=== PATIENT | female | born 1945 | race African-American/Black ===

== ENCOUNTER 2019-04-14 12:02 | Inpatient (IN) | payer MEDICARE, MEDICAID, OTHER ==
[~2019-04-14] VITALS: Ht 167.6 cm; Wt 71.9 kg
[2019-04-14] MEDS ORDERED: NITROGLYCERIN OINT 1GM/INCH UDPKT TD ONE (12:45)
[2019-04-14] MEDS ORDERED: ASPIRIN 81MG TABLET PO ONE (12:45)
[2019-04-14] MEDS ORDERED: FUROSEMIDE 40MG/4ML VIAL IV ONE (12:45)
[2019-04-14 14:19] LABS: BASOPHILS % 1.2 % (0.0-2.0); EOSINOPHILS % 3.9 % (0.0-5.0); HEMATOCRIT. 39.1 % (36.0-48.0); HEMOGLOBIN. 12.4 g/dL (12.0-16.0); LYMPHOCYTES % 22.9 % (20.0-50.0); MEAN CORPUSCULAR HEMOGLOBIN 23.1 pg (28.0-32.0); MEAN CORPUSCULAR VOLUME 72.8 fL (81.0-99.0); MEAN PLATELET VOLUME 8.9 fl (7.4-10.4); MONOCYTES % 13.9 % (2.0-8.0); NEUTROPHILS % 58.1 % (40.0-76.0); PLATELET 207 x1000/uL (130-400); RED BLOOD CELL COUNT 5.36 mill/uL (4.2-5.4); RED CELL DISTRIBUTION WIDTH 17.2 % (11.6-14.6)
[2019-04-14 14:23] LABS: CHLORIDE 108 mEq/L (98-107)
[2019-04-14 14:26] LABS: INR 1.1; PARTIAL THROMBOPLASTIN TIME 28.6 sec (23.4-31.0); PROTHROMBIN TIME 11.6 sec (9.6-11.0)
[2019-04-14] MEDS ORDERED: ONDANSETRON HCL 4MG/2ML INJ IV PRN (19:30)
[2019-04-14] MEDS ORDERED: MAGNESIUM HYDROXIDE 400MG/5ML 30ML UDC PO PRN (19:30)
[2019-04-14] MEDS ORDERED: CLONIDINE 0.1MG TABLET PO PRN (19:30)
[2019-04-14] MEDS ORDERED: IPRATROPIUM/ALBUTEROL 0.5-3(2.5)MG/3ML NEB INH PRN (19:30)
[2019-04-14] MEDS ORDERED: DIPHENHYDRAMINE 50MG/ML VIAL IV PRN (19:30)
[2019-04-14] MEDS ORDERED: IOHEXOL-350 100 ML BOTTLE ONE (19:51)
[2019-04-14 21:30] VITALS: BP 159/64
[2019-04-14] MEDS ORDERED: TEMAZEPAM 15MG CAPSULE PO PRN (22:00)
[2019-04-14] MEDS: CARBAMAZEPINE 100MG TABLET CHEW PO SCH (22:47)
[2019-04-14] MEDS: ATORVASTATIN CALCIUM 40MG TABLET PO SCH (22:47)
[2019-04-14] MEDS: FUROSEMIDE 40MG/4ML VIAL IVP SCH (22:47)
[2019-04-14] MEDS: PANTOPRAZOLE 40MG DR TABLET PO SCH (22:47)
[2019-04-14] MEDS: ENOXAPARIN 40MG/0.4ML SYR SUBCUT SCH (22:48)
[2019-04-14] MEDS: SODIUM CHLORIDE 0.9% INJ 3ML FLUSH IVF SCH (22:48)
[2019-04-14] MEDS ORDERED: TRAV2.5D OP (23:58)
[2019-04-14] MEDS ORDERED: CARB100T4 PO (23:58)
[2019-04-14] MEDS ORDERED: ATOR40TA70 PO (23:58)
[2019-04-14] MEDS ORDERED: NITR0.4T49 SL (23:58)
[2019-04-14] MEDS ORDERED: POTA15TA11 PO (23:58)
[2019-04-14] MEDS ORDERED: DICL75TA5 PO (23:58)
[2019-04-14] MEDS ORDERED: FURO40TA5 PO (23:58)
[2019-04-14] MEDS ORDERED: ATEN-42 PO (23:58)
[2019-04-14] MEDS ORDERED: ASPI-1393 PO (23:58)
[2019-04-14] MEDS ORDERED: ESOM40CA53 PO (23:58)
[2019-04-14] MEDS ORDERED: DOXY100T2 PO (23:58)
[2019-04-14] MEDS ORDERED: DICL100G16 TP (23:58)
[2019-04-15] VITALS: BP 130/86
[2019-04-15 04:00] VITALS: BP 138/62
[2019-04-15] MEDS: SODIUM CHLORIDE 0.9% INJ 3ML FLUSH IVF SCH ×3 (06:24→21:21)
[2019-04-15] MEDS: CARBAMAZEPINE 100MG TABLET CHEW PO SCH ×3 (06:24→21:22)
[2019-04-15] MEDS: PANTOPRAZOLE 40MG DR TABLET PO SCH (06:24)
[2019-04-15 07:19] LABS: CHLORIDE 105 mEq/L (98-107)
[2019-04-15 08:00] VITALS: BP 164/71
[2019-04-15] MEDS: ASPIRIN 81MG EC TABLET PO SCH (08:30)
[2019-04-15] MEDS: POTASSIUM CHLORIDE 20MEQ TABLET SR PO SCH (08:30)
[2019-04-15] MEDS: FUROSEMIDE 40MG/4ML VIAL IVP SCH ×2 (08:30→18:03)
[2019-04-15] MEDS ORDERED: ATENOLOL 25MG TABLET PO SCH (09:00)
[2019-04-15 12:00] VITALS: BP 138/76
[2019-04-15 16:00] VITALS: BP 147/62
[2019-04-15] MEDS: LOSARTAN POTASSIUM 25 MG TABLET PO SCH (18:03)
[2019-04-15 20:00] VITALS: BP 130/74
[2019-04-15] MEDS: ENOXAPARIN 40MG/0.4ML SYR SUBCUT SCH (21:21)
[2019-04-15] MEDS: FAMOTIDINE 20MG TABLET PO SCH (21:22)
[2019-04-15] MEDS: ATORVASTATIN CALCIUM 40MG TABLET PO SCH (21:22)
[2019-04-16] VITALS: BP 129/52
[2019-04-16 04:00] VITALS: BP 130/61
[2019-04-16] MEDS: CARBAMAZEPINE 100MG TABLET CHEW PO SCH ×3 (06:16→21:30)
[2019-04-16] MEDS: FUROSEMIDE 40MG/4ML VIAL IVP SCH ×2 (06:16→17:12)
[2019-04-16] MEDS: SODIUM CHLORIDE 0.9% INJ 3ML FLUSH IVF SCH ×3 (06:16→21:31)
[2019-04-16 07:31] LABS: BASOPHILS % 0.8 % (0.0-2.0); EOSINOPHILS % 6.8 % (0.0-5.0); HEMATOCRIT. 38.4 % (36.0-48.0); HEMOGLOBIN. 12.3 g/dL (12.0-16.0); LYMPHOCYTES % 28.6 % (20.0-50.0); MEAN CORPUSCULAR VOLUME 72.1 fL (81.0-99.0); MEAN PLATELET VOLUME 9.1 fl (7.4-10.4); MONOCYTES % 14.1 % (2.0-8.0); NEUTROPHILS % 49.7 % (40.0-76.0); PLATELET 203 x1000/uL (130-400); RED BLOOD CELL COUNT 5.32 mill/uL (4.2-5.4); RED CELL DISTRIBUTION WIDTH 16.9 % (11.6-14.6)
[2019-04-16 08:00] VITALS: BP 137/51
[2019-04-16] MEDS: FAMOTIDINE 20MG TABLET PO SCH ×2 (08:33→21:30)
[2019-04-16] MEDS: ASPIRIN 81MG EC TABLET PO SCH (08:33)
[2019-04-16] MEDS: POTASSIUM CHLORIDE 20MEQ TABLET SR PO SCH (08:33)
[2019-04-16] MEDS: LOSARTAN POTASSIUM 25 MG TABLET PO SCH (08:33)
[2019-04-16 12:00] VITALS: BP 117/66
[2019-04-16 16:00] VITALS: BP 131/59
[2019-04-16] MEDS: ACETAMINOPHEN 325MG TABLET PO PRN (17:21)
[2019-04-16 20:04] VITALS: BP 115/51
[2019-04-16] MEDS: ATORVASTATIN CALCIUM 40MG TABLET PO SCH (21:30)
[2019-04-16] MEDS: ENOXAPARIN 40MG/0.4ML SYR SUBCUT SCH (21:31)
[2019-04-17 00:01] VITALS: BP 140/62
[2019-04-17] MEDS: SODIUM CHLORIDE 0.9% INJ 3ML FLUSH IVF SCH ×3 (06:13→21:05)
[2019-04-17] MEDS: CARBAMAZEPINE 100MG TABLET CHEW PO SCH ×3 (06:13→21:04)
[2019-04-17] MEDS: FUROSEMIDE 40MG/4ML VIAL IVP SCH ×2 (06:16→16:51)
[2019-04-17 08:00] VITALS: BP 124/53
[2019-04-17] MEDS: LOSARTAN POTASSIUM 25 MG TABLET PO SCH (08:50)
[2019-04-17] MEDS: POTASSIUM CHLORIDE 20MEQ TABLET SR PO SCH (08:50)
[2019-04-17] MEDS: ASPIRIN 81MG EC TABLET PO SCH (08:50)
[2019-04-17 09:00] LABS: BASOPHILS % 1.7 % (0.0-2.0); EOSINOPHILS % 8.1 % (0.0-5.0); HEMATOCRIT. 40.6 % (36.0-48.0); HEMOGLOBIN. 12.8 g/dL (12.0-16.0); LYMPHOCYTES % 30.8 % (20.0-50.0); MEAN CORPUSCULAR HEMOGLOBIN 22.9 pg (28.0-32.0); MEAN CORPUSCULAR VOLUME 72.8 fL (81.0-99.0); MEAN PLATELET VOLUME 9.2 fl (7.4-10.4); MONOCYTES % 13.5 % (2.0-8.0); NEUTROPHILS % 45.9 % (40.0-76.0); PLATELET 187 x1000/uL (130-400); RED BLOOD CELL COUNT 5.57 mill/uL (4.2-5.4); RED CELL DISTRIBUTION WIDTH 17.3 % (11.6-14.6)
[2019-04-17 12:00] VITALS: BP 137/67
[2019-04-17 16:00] VITALS: BP 146/75
[2019-04-17 20:29] VITALS: BP 132/62
[2019-04-17] MEDS: ENOXAPARIN 40MG/0.4ML SYR SUBCUT SCH (21:04)
[2019-04-17] MEDS: ATORVASTATIN CALCIUM 40MG TABLET PO SCH (21:04)
[2019-04-17] MEDS: FAMOTIDINE 20MG TABLET PO SCH (21:04)
[2019-04-18 00:11] VITALS: BP 145/63
[2019-04-18 04:27] VITALS: BP 141/62
[2019-04-18] MEDS: FUROSEMIDE 40MG/4ML VIAL IVP SCH (06:24)
[2019-04-18] MEDS: CARBAMAZEPINE 100MG TABLET CHEW PO SCH ×2 (06:24→13:53)
[2019-04-18] MEDS: SODIUM CHLORIDE 0.9% INJ 3ML FLUSH IVF SCH ×2 (06:24→13:53)
[2019-04-18 07:56] LABS: BASOPHILS % 1.4 % (0.0-2.0); EOSINOPHILS % 7.5 % (0.0-5.0); HEMATOCRIT. 42.4 % (36.0-48.0); HEMOGLOBIN. 13.3 g/dL (12.0-16.0); LYMPHOCYTES % 27.3 % (20.0-50.0); MEAN CORPUSCULAR VOLUME 73.3 fL (81.0-99.0); MEAN PLATELET VOLUME 9.6 fl (7.4-10.4); MONOCYTES % 14.7 % (2.0-8.0); NEUTROPHILS % 49.1 % (40.0-76.0); PLATELET 159 x1000/uL (130-400); RED BLOOD CELL COUNT 5.79 mill/uL (4.2-5.4); RED CELL DISTRIBUTION WIDTH 17.2 % (11.6-14.6)
[2019-04-18 07:57] VITALS: BP 137/71
[2019-04-18] MEDS: ASPIRIN 81MG EC TABLET PO SCH (09:23)
[2019-04-18] MEDS: POTASSIUM CHLORIDE 20MEQ TABLET SR PO SCH (09:23)
[2019-04-18] MEDS: LOSARTAN POTASSIUM 25 MG TABLET PO SCH (09:23)
[2019-04-18 11:53] VITALS: BP 160/79
[2019-04-18] MEDS: ACETAMINOPHEN 325MG TABLET PO PRN (12:33)
[2019-04-18 16:22] VITALS: BP 148/75
[2019-04-18 17:03] VITALS: BP 148/75
== END 2019-04-18 18:34 | disposition home or self-care (01) | DRG 291 ==
LOC: ER 14:23 → 6WST 17:43 → ENRESERV 18:26
PROVIDERS: ADMIT Internal Medicine; ATTEND Internal Medicine
DX: I11.0 Hypertensive heart disease with heart failure (principal); J96.90 Respiratory failure, unspecified, unspecified whether with hypoxia or hypercapnia; I50.43 Acute on chronic combined systolic (congestive) and diastolic (congestive) heart failure; K21.9 Gastro-esophageal reflux disease without esophagitis; I25.5 Ischemic cardiomyopathy; R74.0 Nonspecific elevation of levels of transaminase and lactic acid dehydrogenase [LDH]; E78.00 Pure hypercholesterolemia, unspecified; H40.9 Unspecified glaucoma; M19.90 Unspecified osteoarthritis, unspecified site; I25.10 Atherosclerotic heart disease of native coronary artery without angina pectoris; I25.2 Old myocardial infarction; Z79.82 Long term (current) use of aspirin; Z79.899 Other long term (current) drug therapy; Z82.49 Family history of ischemic heart disease and other diseases of the circulatory system; Z90.710 Acquired absence of both cervix and uterus; Z95.1 Presence of aortocoronary bypass graft; Z88.8 Allergy status to other drugs, medicaments and biological substances; Z98.49 Cataract extraction status, unspecified eye
CPT/HCPCS: 36415; 71045; 71275; 80048; 80061; 80076; 83036; 83735; 83880; 84443; 84484; 85379; 93005; 93306; 93970; 96374; 99285; J1650; J1940; Q9967

== ENCOUNTER 2019-05-09 11:07 | Emergency (ER) | payer MEDICARE, OTHER ==
[~2019-05-09] VITALS: Ht 162.6 cm; Wt 60.0 kg
[~2019-05-09 11:07] MED LIST: ASPI-1393 PO; ATEN-42 PO; ATOR40TA70 PO; CARB100T4 PO; DICL100G16 TP; DICL75TA5 PO; DOXY100T2 PO; ESOM40CA53 PO; FURO40TA5 PO; NITR0.4T49 SL; POTA15TA11 PO; TRAV2.5D OP
[2019-05-09 12:15] LABS: BASOPHILS % 1.3 % (0.0-2.0); EOSINOPHILS % 3.1 % (0.0-5.0); HEMATOCRIT. 41.3 % (36.0-48.0); HEMOGLOBIN. 12.9 g/dL (12.0-16.0); LYMPHOCYTES % 26.7 % (20.0-50.0); MEAN CORPUSCULAR HEMOGLOBIN 22.9 pg (28.0-32.0); MEAN CORPUSCULAR VOLUME 73.1 fL (81.0-99.0); MEAN PLATELET VOLUME 9.6 fl (7.4-10.4); MONOCYTES % 13.9 % (2.0-8.0); PLATELET 168 x1000/uL (130-400); RED BLOOD CELL COUNT 5.65 mill/uL (4.2-5.4); RED CELL DISTRIBUTION WIDTH 17.1 % (11.6-14.6)
[2019-05-09 12:23] LABS: CHLORIDE 104 mEq/L (98-107)
[2019-05-09 12:24] LABS: INR 1.1; PROTHROMBIN TIME 11.4 sec (9.6-11.0)
[2019-05-09 16:26] LABS: CLARITY URINE CLEAR (CLEAR); COLOR URINE YELLOW (YELLOW); KETONES URINE NEGATIVE (NEGATIVE); LEUKOCYTE ESTERASE URINE NEGATIVE (NEGATIVE); NITRITE URINE NEGATIVE (NEGATIVE); OCCULT BLOOD URINE NEGATIVE (NEGATIVE); PROTEIN URINE TRACE (NEGATIVE); SPECIFIC GRAVITY URINE 1.021 (1.005-1.030); UROBILINOGEN URINE 0.2 E.U./dL (0.2-1.0)
[2019-05-09 18:03] VITALS: BP 137/77
== END 2019-05-09 18:23 | disposition home or self-care (01) ==
LOC: ER 11:07
DX: I11.0 Hypertensive heart disease with heart failure (principal); I50.9 Heart failure, unspecified; I25.2 Old myocardial infarction; J44.9 Chronic obstructive pulmonary disease, unspecified; I25.10 Atherosclerotic heart disease of native coronary artery without angina pectoris; Z95.1 Presence of aortocoronary bypass graft; Z88.3 Allergy status to other anti-infective agents
CPT/HCPCS: 36415; 71045; 83605; 83880; 84484; 93005; 99284

== ENCOUNTER 2020-01-27 08:40 | Inpatient (IN) | payer MEDICARE, MEDICAID ==
[~2020-01-27] VITALS: Ht 167.6 cm; Wt 56.7 kg
[~2020-01-27 08:40] MED LIST changes: -ASPI-1393 PO; +ASPI-1497 PO
[2020-01-27] MEDS ORDERED: ONDANSETRON HCL 4MG/2ML INJ IV STA ×2 (09:56→10:26)
[2020-01-27 10:13] LABS: BASOPHILS % 0.7 % (0.0-2.0); EOSINOPHILS % 1.4 % (0.0-5.0); HEMATOCRIT. 41.8 % (36.0-48.0); HEMOGLOBIN. 13.3 g/dL (12.0-16.0); LYMPHOCYTES % 20.4 % (20.0-50.0); MEAN CORPUSCULAR HEMOGLOBIN 23.5 pg (28.0-32.0); MEAN CORPUSCULAR VOLUME 74.1 fL (81.0-99.0); MEAN PLATELET VOLUME 10.2 fl (7.4-10.4); NEUTROPHILS % 64.5 % (40.0-76.0); PLATELET 140 x1000/uL (130-400); RED BLOOD CELL COUNT 5.65 mill/uL (4.2-5.4); RED CELL DISTRIBUTION WIDTH 16.6 % (11.6-14.6)
[2020-01-27 10:19] LABS: CHLORIDE 108 mEq/L (98-107)
[2020-01-27 10:22] LABS: D-DIMER 1.89 mg/L FEU (<0.50); INR 1.1; PROTHROMBIN TIME 11.6 sec (9.6-11.0)
[2020-01-27] MEDS ORDERED: SODIUM CHLORIDE 0.9% 500 ML IV ONE (10:26)
[2020-01-27] MEDS ORDERED: FAMOTIDINE 20MG/2ML VIAL IV STA (10:26)
[2020-01-27] MEDS ORDERED: FUROSEMIDE 20MG/2ML VIAL IVP ONE (11:00)
[2020-01-27] MEDS ORDERED: CLONIDINE 0.1MG TABLET PO PRN (13:30)
[2020-01-27] MEDS ORDERED: NITROGLYCERIN 0.4MG TABLET SL SL PRN (13:30)
[2020-01-27] MEDS ORDERED: ENOXAPARIN 40MG/0.4ML SYR SUBCUT SCH (13:30)
[2020-01-27] MEDS ORDERED: MORPHINE SULFATE 2 MG/ML CPJ (NOT FOR IM USE) IV PRN (13:30)
[2020-01-27] MEDS ORDERED: ONDANSETRON HCL 4MG/2ML INJ IV PRN (13:30)
[2020-01-27] MEDS ORDERED: DOCUSATE SODIUM 100MG CAPSULE PO PRN (13:30)
[2020-01-27] MEDS ORDERED: ACETAMINOPHEN 325MG TABLET PO PRN (13:30)
[2020-01-27 16:00] VITALS: BP 168/96
[2020-01-27] MEDS ORDERED: CARVEDILOL 6.25 MG TABLET PO NR (17:00)
[2020-01-27 17:03] LABS: CREATINE KINASE 117 IU/L (26-192)
[2020-01-27 17:04] LABS: CREATINE KINASE MB FRACTION 1.4 ng/mL (0.5-3.6)
[2020-01-27] MEDS: FUROSEMIDE 100MG/10ML VIAL IV SCH (18:48)
[2020-01-27] MEDS: PANTOPRAZOLE 40MG DR TABLET PO SCH (18:50)
[2020-01-27] MEDS: METOPROLOL TARTRATE 25MG TABLET PO SCH (18:51)
[2020-01-27] MEDS: ENOXAPARIN 30MG/0.3ML SYR SUBCUT SCH (19:58)
[2020-01-27 20:00] VITALS: BP 160/80
[2020-01-27] MEDS ORDERED: FUROSEMIDE 40MG/4ML VIAL IV SCH (21:00)
[2020-01-27] MEDS: DICLOFENAC SODIUM 75MG DR (EC) TABLET PO SCH (22:15)
[2020-01-27] MEDS: ATORVASTATIN CALCIUM 40MG TABLET PO SCH (22:16)
[2020-01-28] VITALS (7 sets, daily range): BP systolic 130–148; BP diastolic 57–72
[2020-01-28 06:12] LABS: HEMATOCRIT. 39.6 % (36.0-48.0); HEMOGLOBIN. 12.6 g/dL (12.0-16.0); MEAN CORPUSCULAR HEMOGLOBIN 23.4 pg (28.0-32.0); MEAN CORPUSCULAR VOLUME 73.5 fL (81.0-99.0); MEAN PLATELET VOLUME 10.2 fl (7.4-10.4); PLATELET 129 x1000/uL (130-400); RED BLOOD CELL COUNT 5.38 mill/uL (4.2-5.4); RED CELL DISTRIBUTION WIDTH 16.3 % (11.6-14.6)
[2020-01-28 06:27] LABS: CHLORIDE 107 mEq/L (98-107)
[2020-01-28 06:42] LABS: LDL CHOLESTEROL 67 mg/dL (5-100)
[2020-01-28 06:43] LABS: HDL CHOLESTEROL 67 mg/dL (40-59)
[2020-01-28] MEDS ORDERED: MAGNESIUM/ALUMINUM HYDROXIDE/SIMETHICONE 30ML UDC PO PRN (08:00)
[2020-01-28] MEDS: MAGNESIUM/ALUMINUM HYDROXIDE/SIMETHICONE 30ML UDC PO PRN (08:46)
[2020-01-28] MEDS: ASPIRIN 81MG EC TABLET PO SCH (08:46)
[2020-01-28] MEDS: PANTOPRAZOLE 40MG DR TABLET PO SCH (08:47)
[2020-01-28] MEDS: FUROSEMIDE 100MG/10ML VIAL IV SCH ×2 (08:47→17:34)
[2020-01-28] MEDS: METOPROLOL TARTRATE 25MG TABLET PO SCH (08:48)
[2020-01-28] MEDS: DICLOFENAC SODIUM 75MG DR (EC) TABLET PO SCH ×2 (08:52→20:40)
[2020-01-28] MEDS ORDERED: FUROSEMIDE 40MG/4ML VIAL IV SCH (09:00)
[2020-01-28] MEDS ORDERED: POTASSIUM CHLORIDE 10MEQ TABLET SR PO SCH (09:00)
[2020-01-28 09:54] LABS: PLATELET ESTIMATE SLIGHTLY DECREASED
[2020-01-28] MEDS ORDERED: ZOLPIDEM TARTRATE 5MG TABLET PO PRN (10:00)
[2020-01-28] MEDS: ENOXAPARIN 30MG/0.3ML SYR SUBCUT SCH (17:18)
[2020-01-28] MEDS: POTASSIUM CHLORIDE 10MEQ TABLET SR PO SCH (17:34)
[2020-01-28] MEDS: CARVEDILOL 6.25 MG TABLET PO SCH (20:41)
[2020-01-28] MEDS: ATORVASTATIN CALCIUM 40MG TABLET PO SCH (20:41)
[2020-01-29 04:00] VITALS: BP 119/54
[2020-01-29 06:33] LABS: HEMATOCRIT. 40.4 % (36.0-48.0); HEMOGLOBIN. 13.2 g/dL (12.0-16.0); MEAN CORPUSCULAR HEMOGLOBIN 23.6 pg (28.0-32.0); MEAN CORPUSCULAR VOLUME 72.2 fL (81.0-99.0); MEAN PLATELET VOLUME 10.1 fl (7.4-10.4); PLATELET 138 x1000/uL (130-400); RED BLOOD CELL COUNT 5.59 mill/uL (4.2-5.4)
[2020-01-29] MEDS: PANTOPRAZOLE 40MG DR TABLET PO SCH ×2 (07:22→08:45)
[2020-01-29] MEDS: FUROSEMIDE 100MG/10ML VIAL IV SCH ×2 (07:22→17:17)
[2020-01-29 08:00] VITALS: BP 128/80
[2020-01-29] MEDS: DICLOFENAC SODIUM 75MG DR (EC) TABLET PO SCH ×2 (08:45→20:27)
[2020-01-29] MEDS: POTASSIUM CHLORIDE 10MEQ TABLET SR PO SCH ×2 (08:45→17:20)
[2020-01-29] MEDS: ASPIRIN 81MG EC TABLET PO SCH (08:45)
[2020-01-29] MEDS: CARVEDILOL 6.25 MG TABLET PO SCH ×2 (08:46→20:26)
[2020-01-29] MEDS: MAGNESIUM/ALUMINUM HYDROXIDE/SIMETHICONE 30ML UDC PO PRN (08:49)
[2020-01-29 09:48] LABS: PLATELET ESTIMATE NORMAL
[2020-01-29] MEDS: DOCUSATE SODIUM 100MG CAPSULE PO SCH ×2 (10:00→17:24)
[2020-01-29] MEDS ORDERED: LACTULOSE 20G/30ML UDC PO PRN (10:00)
[2020-01-29 12:00] VITALS: BP 132/62
[2020-01-29 16:00] VITALS: BP 125/62
[2020-01-29] MEDS: ENOXAPARIN 30MG/0.3ML SYR SUBCUT SCH (17:20)
[2020-01-29 20:00] VITALS: BP 132/68
[2020-01-29] MEDS: ATORVASTATIN CALCIUM 40MG TABLET PO SCH (20:26)
[2020-01-29 21:10] VITALS: BP 132/68
[2020-01-30] VITALS: BP 133/76
[2020-01-30 04:00] VITALS: BP 128/66
[2020-01-30] MEDS: FUROSEMIDE 100MG/10ML VIAL IV SCH (06:33)
[2020-01-30 07:35] LABS: HEMOGLOBIN. 13.8 g/dL (12.0-16.0); MEAN CORPUSCULAR HEMOGLOBIN 23.7 pg (28.0-32.0); MEAN CORPUSCULAR VOLUME 73.6 fL (81.0-99.0); MEAN PLATELET VOLUME 10.3 fl (7.4-10.4); PLATELET 155 x1000/uL (130-400); RED BLOOD CELL COUNT 5.84 mill/uL (4.2-5.4)
[2020-01-30] MEDS ORDERED: FAMOTIDINE 20MG TABLET PO SCH (07:40)
[2020-01-30 08:00] VITALS: BP 112/62
[2020-01-30] MEDS: CARVEDILOL 6.25 MG TABLET PO SCH (08:00)
[2020-01-30] MEDS: DOCUSATE SODIUM 100MG CAPSULE PO SCH (08:34)
[2020-01-30] MEDS: ASPIRIN 81MG EC TABLET PO SCH (08:34)
[2020-01-30] MEDS: DICLOFENAC SODIUM 75MG DR (EC) TABLET PO SCH (08:35)
[2020-01-30] MEDS: POTASSIUM CHLORIDE 10MEQ TABLET SR PO SCH (08:35)
[2020-01-30 09:42] LABS: PLATELET ESTIMATE NORMAL
[2020-01-30 12:00] VITALS: BP 126/80
[2020-01-30 13:16] VITALS: BP 126/80
[2020-01-31] MEDS ORDERED: FUROSEMIDE 40MG TABLET PO SCH (09:00)
== END 2020-01-30 14:08 | disposition home health service (06) | DRG 293 ==
LOC: ER 08:40 → 7WST 10:32 → EDBEDREQ 10:36 → ENRESERV 13:27
PROVIDERS: ADMIT Hospitalist; ATTEND Hospitalist
DX: I11.0 Hypertensive heart disease with heart failure (principal); I50.23 Acute on chronic systolic (congestive) heart failure; I25.10 Atherosclerotic heart disease of native coronary artery without angina pectoris; E78.5 Hyperlipidemia, unspecified; I34.0 Nonrheumatic mitral (valve) insufficiency; I25.5 Ischemic cardiomyopathy; G54.6 Phantom limb syndrome with pain; I25.2 Old myocardial infarction; Z95.810 Presence of automatic (implantable) cardiac defibrillator; Z95.1 Presence of aortocoronary bypass graft; Z90.710 Acquired absence of both cervix and uterus; Z88.8 Allergy status to other drugs, medicaments and biological substances; Z79.82 Long term (current) use of aspirin; Z79.1 Long term (current) use of non-steroidal anti-inflammatories (NSAID); Z79.899 Other long term (current) drug therapy; Z79.84 Long term (current) use of oral hypoglycemic drugs; Z79.810 Long term (current) use of selective estrogen receptor modulators (SERMs); Z79.2 Long term (current) use of antibiotics; Z82.49 Family history of ischemic heart disease and other diseases of the circulatory system
CPT/HCPCS: 36415; 71045; 76705; 80048; 80053; 80061; 82550; 82553; 83880; 84484; 85025; 85379; 93005; 93306; 93970; 99291; J1650; J1940; J2405; J3490; J7040

== ENCOUNTER 2021-02-18 03:22 | Inpatient (IN) | payer MEDICARE, MEDICAID ==
[2021-02-18] VITALS (9 sets, daily range): BP systolic 112–195; BP diastolic 76–127
[~2021-02-18] VITALS: Ht 165.1 cm; Wt 65.1 kg
[2021-02-18] MEDS ORDERED: ONDANSETRON HCL 4MG/2ML INJ IV STA (04:04)
[2021-02-18] MEDS ORDERED: FAMOTIDINE 20MG/2ML VIAL IV STA (04:04)
[2021-02-18] MEDS ORDERED: MORPHINE SULFATE 4 MG/ML CPJ (NOT FOR IM USE) IV STA (04:04)
[2021-02-18] MEDS ORDERED: SODIUM CHLORIDE 0.9% 1,000 ML IV ONE (04:15)
[2021-02-18 04:44] LABS: BASOPHILS % 0.8 % (0.0-2.0); EOSINOPHILS % 1.1 % (0.0-5.0); HEMATOCRIT. 47.5 % (36.0-48.0); LYMPHOCYTES % 30.7 % (20.0-50.0); MEAN CORPUSCULAR HEMOGLOBIN 22.5 pg (28.0-32.0); MEAN CORPUSCULAR VOLUME 76.1 fL (81.0-99.0); MEAN PLATELET VOLUME 10.1 fl (7.4-10.4); MONOCYTES % 9.8 % (2.0-8.0); NEUTROPHILS % 57.6 % (40.0-76.0); PLATELET 123 x1000/uL (130-400); RED BLOOD CELL COUNT 6.25 mill/uL (4.2-5.4); RED CELL DISTRIBUTION WIDTH 17.2 % (11.6-14.6)
[2021-02-18 04:51] LABS: CHLORIDE 104 mEq/L (98-107)
[2021-02-18] MEDS ORDERED: AZITHROMYCIN 500 MG in DEXT 5% WATER 250 ML IV ONE (05:00)
[2021-02-18] MEDS ORDERED: CEFTRIAXONE 1 G PREMIX 50 ML IV ONE (05:00)
[2021-02-18 05:10] LABS: PROTHROMBIN TIME 11.2 sec (9.6-11.0)
[2021-02-18 05:21] LABS: CLARITY URINE CLEAR (CLEAR); COLOR URINE YELLOW (YELLOW); KETONES URINE TRACE (NEGATIVE); LEUKOCYTE ESTERASE URINE NEGATIVE (NEGATIVE); NITRITE URINE NEGATIVE (NEGATIVE); OCCULT BLOOD URINE NEGATIVE (NEGATIVE); PH URINE 8.5 (4.5-8.0); PROTEIN URINE 2+ (NEGATIVE); UROBILINOGEN URINE 0.2 E.U./dL (0.2-1.0)
[2021-02-18] MEDS ORDERED: IOHEXOL-300 100 ML BOTTLE ONE (06:16)
[2021-02-18] MEDS ORDERED: CEFTRIAXONE 1 G PREMIX 50 ML IV SCH (09:15)
[2021-02-18] MEDS ORDERED: ONDANSETRON HCL 4MG/2ML INJ IV PRN (09:15)
[2021-02-18] MEDS ORDERED: HYDRALAZINE 20MG/ML VIAL IV PRN (09:15)
[2021-02-18] MEDS ORDERED: IPRATROPIUM/ALBUTEROL 0.5-3(2.5)MG/3ML NEB HHN PRN (09:15)
[2021-02-18] MEDS: MORPHINE SULFATE 2 MG/ML CPJ (NOT FOR IM USE) IV PRN ×2 (09:33→15:44)
[2021-02-18] MEDS: PANTOPRAZOLE SODIUM 40 MG/VIAL IV SCH (09:40)
[2021-02-18] MEDS: DEXT 5%/0.45% NACL 1000ML 1,000 ML IV SCH ×2 (09:43→23:02)
[2021-02-18] MEDS ORDERED: MORPHINE SULFATE 2 MG/ML CPJ (NOT FOR IM USE) IV SCH (12:15)
[2021-02-19] VITALS (11 sets, daily range): BP systolic 108–145; BP diastolic 57–80
[2021-02-19] MEDS: CEFTRIAXONE 1,000 MG in DEXTROSE 5% WATER 50 ML IV SCH (04:14)
[2021-02-19] MEDS: AZITHROMYCIN 500 MG in DEXT 5% WATER 250 ML IV SCH (05:25)
[2021-02-19 07:17] LABS: BASOPHILS % 0.6 % (0.0-2.0); EOSINOPHILS % 0.1 % (0.0-5.0); HEMATOCRIT. 52.6 % (36.0-48.0); HEMOGLOBIN. 16.3 g/dL (12.0-16.0); LYMPHOCYTES % 15.5 % (20.0-50.0); MEAN CORPUSCULAR HEMOGLOBIN 23.4 pg (28.0-32.0); MEAN CORPUSCULAR VOLUME 75.4 fL (81.0-99.0); MONOCYTES % 10.4 % (2.0-8.0); NEUTROPHILS % 73.4 % (40.0-76.0); RED BLOOD CELL COUNT 6.97 mill/uL (4.2-5.4); RED CELL DISTRIBUTION WIDTH 16.9 % (11.6-14.6)
[2021-02-19] MEDS: PANTOPRAZOLE SODIUM 40 MG/VIAL IV SCH (09:48)
[2021-02-19 10:18] LABS: PLATELET 121 x1000/uL (130-400)
[2021-02-19] MEDS: DEXT 5%/0.45% NACL 1000ML 1,000 ML IV SCH ×2 (11:46→20:15)
[2021-02-20] VITALS (10 sets, daily range): BP systolic 131–155; BP diastolic 55–88
[2021-02-20] MEDS: DEXT 5%/0.45% NACL 1000ML 1,000 ML IV SCH ×2 (04:06→20:31)
[2021-02-20] MEDS: CEFTRIAXONE 1,000 MG in DEXTROSE 5% WATER 50 ML IV SCH (04:06)
[2021-02-20] MEDS: AZITHROMYCIN 500 MG in DEXT 5% WATER 250 ML IV SCH (05:17)
[2021-02-20 06:29] LABS: BASOPHILS % 0.2 % (0.0-2.0); EOSINOPHILS % 0.4 % (0.0-5.0); HEMATOCRIT. 42.9 % (36.0-48.0); HEMOGLOBIN. 13.3 g/dL (12.0-16.0); LYMPHOCYTES % 11.9 % (20.0-50.0); MEAN CORPUSCULAR HEMOGLOBIN 23.2 pg (28.0-32.0); MEAN CORPUSCULAR VOLUME 75.2 fL (81.0-99.0); MEAN PLATELET VOLUME 10.8 fl (7.4-10.4); NEUTROPHILS % 76.5 % (40.0-76.0); PLATELET 116 x1000/uL (130-400); RED BLOOD CELL COUNT 5.71 mill/uL (4.2-5.4); RED CELL DISTRIBUTION WIDTH 17.3 % (11.6-14.6)
[2021-02-20] MEDS: PANTOPRAZOLE SODIUM 40 MG/VIAL IV SCH (10:31)
[2021-02-20] MEDS: CARVEDILOL 3.125 MG TABLET PO SCH (20:10)
[2021-02-21] VITALS (8 sets, daily range): BP systolic 121–153; BP diastolic 57–71
[2021-02-21] MEDS: CEFTRIAXONE 1,000 MG in DEXTROSE 5% WATER 50 ML IV SCH (05:09)
[2021-02-21 05:26] LABS: CHLORIDE 108 mEq/L (98-107)
[2021-02-21] MEDS: AZITHROMYCIN 500 MG in DEXT 5% WATER 250 ML IV SCH ×2 (06:10→06:18)
[2021-02-21 06:22] LABS: BASOPHILS % 0.3 % (0.0-2.0); EOSINOPHILS % 1.1 % (0.0-5.0); HEMATOCRIT. 35.2 % (36.0-48.0); HEMOGLOBIN. 11.2 g/dL (12.0-16.0); LYMPHOCYTES % 14.1 % (20.0-50.0); MEAN CORPUSCULAR HEMOGLOBIN 23.4 pg (28.0-32.0); MEAN CORPUSCULAR VOLUME 73.5 fL (81.0-99.0); MEAN PLATELET VOLUME 10.8 fl (7.4-10.4); MONOCYTES % 12.2 % (2.0-8.0); NEUTROPHILS % 72.3 % (40.0-76.0); PLATELET 105 x1000/uL (130-400); RED BLOOD CELL COUNT 4.79 mill/uL (4.2-5.4); RED CELL DISTRIBUTION WIDTH 16.5 % (11.6-14.6)
[2021-02-21] MEDS ORDERED: DIATR MEGLU/DIATRIZOATE SOLN 120ML ONE (09:54)
[2021-02-21] MEDS: PANTOPRAZOLE SODIUM 40 MG/VIAL IV SCH (10:19)
[2021-02-21] MEDS: CARVEDILOL 3.125 MG TABLET PO SCH ×2 (10:20→21:51)
[2021-02-22] VITALS: BP 120/58
[2021-02-22 02:00] VITALS: BP 139/55
[2021-02-22 04:00] VITALS: BP 142/62
[2021-02-22 06:00] VITALS: BP 137/55
[2021-02-22] MEDS: CEFTRIAXONE 1,000 MG in DEXTROSE 5% WATER 50 ML IV SCH (06:11)
[2021-02-22 06:42] LABS: HEMATOCRIT. 33.1 % (36.0-48.0); HEMOGLOBIN. 10.1 g/dL (12.0-16.0); MEAN CORPUSCULAR HEMOGLOBIN 22.7 pg (28.0-32.0); MEAN CORPUSCULAR VOLUME 74.4 fL (81.0-99.0); MEAN PLATELET VOLUME 10.6 fl (7.4-10.4); PLATELET 117 x1000/uL (130-400); RED BLOOD CELL COUNT 4.45 mill/uL (4.2-5.4); RED CELL DISTRIBUTION WIDTH 16.5 % (11.6-14.6)
[2021-02-22 06:49] LABS: CHLORIDE 111 mEq/L (98-107)
[2021-02-22] MEDS: AZITHROMYCIN 500 MG in DEXT 5% WATER 250 ML IV SCH (06:51)
[2021-02-22] MEDS: PANTOPRAZOLE SODIUM 40 MG/VIAL IV SCH (08:38)
[2021-02-22] MEDS: CARVEDILOL 3.125 MG TABLET PO SCH (08:39)
[2021-02-22] MEDS: DEXT 5%/0.45% NACL 1000ML 1,000 ML IV SCH (08:40)
[2021-02-22 10:00] VITALS: BP 117/50
[2021-02-22 12:10] VITALS: BP 128/50
[2021-02-22 13:18] LABS: CLARITY URINE CLEAR (CLEAR); COLOR URINE YELLOW (YELLOW); KETONES URINE NEGATIVE (NEGATIVE); LEUKOCYTE ESTERASE URINE NEGATIVE (NEGATIVE); NITRITE URINE NEGATIVE (NEGATIVE); OCCULT BLOOD URINE NEGATIVE (NEGATIVE); PH URINE 5.5 (4.5-8.0); PROTEIN URINE 1+ (NEGATIVE); SPECIFIC GRAVITY URINE 1.023 (1.005-1.030); UROBILINOGEN URINE 0.2 E.U./dL (0.2-1.0)
[2021-02-22 13:38] LABS: PLATELET ESTIMATE DECREASED
[2021-03-14] MEDS ORDERED: HYDR-4001 MT (11:31)
[2021-03-15] MEDS ORDERED: DOCU-138 MT (12:04)
== END 2021-02-22 13:35 | disposition home or self-care (01) | DRG 388 ==
LOC: ER 03:27 → 5EST 04:45 → ENRESERV 07:10
PROVIDERS: ADMIT Internal Medicine; ATTEND Internal Medicine
DX: K56.7 Ileus, unspecified (principal); J96.00 Acute respiratory failure, unspecified whether with hypoxia or hypercapnia; J18.9 Pneumonia, unspecified organism; N17.0 Acute kidney failure with tubular necrosis; E87.2 Acidosis; I25.10 Atherosclerotic heart disease of native coronary artery without angina pectoris; E78.5 Hyperlipidemia, unspecified; I08.1 Rheumatic disorders of both mitral and tricuspid valves; R74.01 Elevation of levels of liver transaminase levels; I11.9 Hypertensive heart disease without heart failure; I25.5 Ischemic cardiomyopathy; Z95.1 Presence of aortocoronary bypass graft; Z95.0 Presence of cardiac pacemaker; Z88.1 Allergy status to other antibiotic agents; Z79.899 Other long term (current) drug therapy; Z79.82 Long term (current) use of aspirin
CPT/HCPCS: 36415; 71045; 74018; 74177; 74250; 80048; 80053; 81003; 82270; 83605; 84145; 85025; 93005; 97110; 97116; 97162; 99285; C9113; J0360; J0456; J0696; J2270; J2405; J3490; J7030; J7060; Q9963; Q9967

== ENCOUNTER 2022-11-26 22:30 | Inpatient (IN) | payer MEDICARE, MEDICAID ==
[~2022-11-26] VITALS: Ht 167.6 cm; Wt 56.3 kg
[~2022-11-26 22:30] MED LIST changes: -DICL100G16 TP; -DICL75TA5 PO; +DOCU-138 MT; +HYDR-4001 MT; -TRAV2.5D OP; +TRAV2.5D9 OP
[2022-11-27 00:09] LABS: HEMATOCRIT. 37.7 % (36.0-48.0); HEMOGLOBIN. 11.7 g/dL (12.0-16.0); MEAN CORPUSCULAR HEMOGLOBIN 22.4 pg (28.0-32.0); MEAN CORPUSCULAR VOLUME 72.4 fL (81.0-99.0); MEAN PLATELET VOLUME 9.6 fl (7.4-10.4); PLATELET 203 x1000/uL (130-400); RED BLOOD CELL COUNT 5.21 mill/uL (4.2-5.4)
[2022-11-27 00:15] LABS: CHLORIDE 106 mEq/L (98-107)
[2022-11-27] MEDS ORDERED: FUROSEMIDE 40MG/4ML VIAL IVP ONE (00:30)
[2022-11-27 02:21] LABS: PLATELET ESTIMATE NORMAL
[2022-11-27] MEDS ORDERED: ASPIRIN 325MG EC TABLET PO NR (02:30)
[2022-11-27] MEDS ORDERED: ONDANSETRON HCL 4MG/2ML INJ IV PRN (05:45)
[2022-11-27] MEDS ORDERED: ACETAMINOPHEN 325MG TABLET PO PRN ×2 (05:45)
[2022-11-27] MEDS ORDERED: CLONIDINE 0.1MG TABLET PO PRN (05:45)
[2022-11-27] MEDS ORDERED: DOCUSATE SODIUM 100MG CAPSULE PO PRN (05:45)
[2022-11-27] MEDS ORDERED: IPRATROPIUM/ALBUTEROL 0.5-3(2.5)MG/3ML NEB HHN PRN (05:45)
[2022-11-27 06:43] LABS: T4 FREE 1.63 ng/dL (0.76-1.46)
[2022-11-27] MEDS ORDERED: IOHEXOL-350 100 ML BOTTLE ONE (09:17)
[2022-11-27] MEDS: FUROSEMIDE 40MG/4ML VIAL IVP SCH ×2 (09:33→16:14)
[2022-11-27] MEDS: ASPIRIN 81MG EC TABLET PO SCH (09:34)
[2022-11-27] MEDS: AMLODIPINE 10MG TABLET PO SCH (09:34)
[2022-11-27] MEDS: ENOXAPARIN 40MG/0.4ML SYR SUBCUT SCH (09:35)
[2022-11-27 10:35] VITALS: BP 149/79
[2022-11-27 12:00] VITALS: BP 149/81
[2022-11-27] MEDS: ATENOLOL 25MG TABLET PO SCH (12:15)
[2022-11-27 16:00] VITALS: BP 145/75
[2022-11-27 17:28] LABS: CLARITY URINE CLEAR (CLEAR); COLOR URINE YELLOW (YELLOW); KETONES URINE NEGATIVE (NEGATIVE); LEUKOCYTE ESTERASE URINE NEGATIVE (NEGATIVE); NITRITE URINE NEGATIVE (NEGATIVE); OCCULT BLOOD URINE NEGATIVE (NEGATIVE); PROTEIN URINE NEGATIVE (NEGATIVE); SPECIFIC GRAVITY URINE 1.017 (1.005-1.030)
[2022-11-27 20:00] VITALS: BP 125/64
[2022-11-27] MEDS: ATORVASTATIN CALCIUM 40MG TABLET PO SCH (20:17)
[2022-11-27] MEDS: FAMOTIDINE 20MG TABLET PO SCH (20:17)
[2022-11-28] VITALS: BP 151/82
[2022-11-28 04:00] VITALS: BP 149/80
[2022-11-28 07:03] LABS: EOSINOPHILS % 5.7 % (0.0-5.0); HEMATOCRIT. 42.3 % (36.0-48.0); HEMOGLOBIN. 13.2 g/dL (12.0-16.0); LYMPHOCYTES % 28.1 % (20.0-50.0); MEAN CORPUSCULAR HEMOGLOBIN 22.2 pg (28.0-32.0); MEAN PLATELET VOLUME 10.3 fl (7.4-10.4); MONOCYTES % 14.6 % (2.0-8.0); NEUTROPHILS % 50.6 % (40.0-76.0); PLATELET 258 x1000/uL (130-400); RED BLOOD CELL COUNT 5.96 mill/uL (4.2-5.4); RED CELL DISTRIBUTION WIDTH 15.8 % (11.6-14.6)
[2022-11-28 07:50] LABS: CHLORIDE 102 mEq/L (98-107)
[2022-11-28] MEDS: FUROSEMIDE 40MG/4ML VIAL IVP SCH ×2 (09:10→17:52)
[2022-11-28] MEDS: ASPIRIN 81MG EC TABLET PO SCH (09:10)
[2022-11-28] MEDS: AMLODIPINE 10MG TABLET PO SCH (09:10)
[2022-11-28] MEDS: ATENOLOL 25MG TABLET PO SCH (09:10)
[2022-11-28] MEDS: ENOXAPARIN 40MG/0.4ML SYR SUBCUT SCH (09:11)
[2022-11-28 12:00] VITALS: BP 145/67
[2022-11-28 16:00] VITALS: BP 118/67
[2022-11-28 20:00] VITALS: BP 116/54
[2022-11-28] MEDS: FAMOTIDINE 20MG TABLET PO SCH (20:11)
[2022-11-28] MEDS: ATORVASTATIN CALCIUM 40MG TABLET PO SCH (20:11)
[2022-11-29] VITALS: BP 125/68
[2022-11-29 04:00] VITALS: BP 124/65
[2022-11-29 06:05] LABS: HEMATOCRIT 39.5 % (36.0-48.0); HEMOGLOBIN 12.8 g/dL (12.0-16.0); MEAN CORPUSCULAR HEMOGLOBIN 22.8 pg (28.0-32.0); MEAN CORPUSCULAR VOLUME 70.6 fL (81.0-99.0); PLATELET 231 x1000/uL (130-400); RED BLOOD CELL COUNT 5.59 mill/uL (4.2-5.4)
[2022-11-29 06:11] LABS: CHLORIDE 101 mEq/L (98-107)
[2022-11-29] MEDS: FUROSEMIDE 40MG/4ML VIAL IVP SCH (09:24)
[2022-11-29] MEDS: AMLODIPINE 10MG TABLET PO SCH (09:25)
[2022-11-29] MEDS: ASPIRIN 81MG EC TABLET PO SCH (09:25)
[2022-11-29] MEDS: ATENOLOL 25MG TABLET PO SCH (09:25)
[2022-11-29] MEDS: ENOXAPARIN 40MG/0.4ML SYR SUBCUT SCH (09:30)
[2022-11-29] MEDS ORDERED: POTASSIUM CHLORIDE 20MEQ TABLET SR PO SCH (10:00)
[2022-11-29 10:32] VITALS: BP 123/70
== END 2022-11-29 12:35 | disposition home health service (06) | DRG 291 ==
LOC: ER 22:30 → EDBEDREQ 11-27 02:30 → MICUSO 11-27 04:06 → 7WST 11-27 11:54
PROVIDERS: ADMIT Internal Medicine; ATTEND Internal Medicine
DX: I11.0 Hypertensive heart disease with heart failure (principal); I50.23 Acute on chronic systolic (congestive) heart failure; J91.8 Pleural effusion in other conditions classified elsewhere; K56.609 Unspecified intestinal obstruction, unspecified as to partial versus complete obstruction; I16.0 Hypertensive urgency; Z20.822 Contact with and (suspected) exposure to COVID-19; I25.10 Atherosclerotic heart disease of native coronary artery without angina pectoris; G47.00 Insomnia, unspecified; I42.0 Dilated cardiomyopathy; I34.81 Nonrheumatic mitral (valve) annulus calcification; R79.89 Other specified abnormal findings of blood chemistry; Z88.3 Allergy status to other anti-infective agents; Z88.8 Allergy status to other drugs, medicaments and biological substances; Z79.899 Other long term (current) drug therapy; Z90.710 Acquired absence of both cervix and uterus; Z95.1 Presence of aortocoronary bypass graft; Z95.810 Presence of automatic (implantable) cardiac defibrillator
CPT/HCPCS: 36415; 71045; 71275; 80048; 80053; 80061; 81003; 83036; 83735; 83880; 84145; 84439; 84443; 84484; 85025; 85027; 85379; 87426; 87804; 93005; 93306; 93970; 97162; 97165; 99285; C9803; J1650; J1940; Q9967